=== PATIENT | female | born 1985 | race Two or more races ===

== ENCOUNTER 2020-04-30 05:55 | Day surgery (SDC) | payer OTHER | END 2020-04-30 10:25 | disposition home or self-care (01) | LOC: AMB-ENDOS 05:55 → ADM 15:00 | PROVIDERS: ATTEND Surgery | DX: D13.1 Benign neoplasm of stomach (principal) ==

== ENCOUNTER 2020-10-28 06:15 | Day surgery (SDC) | payer OTHER ==
[~2020-10-28 06:15] MED LIST: INVOKAMET 150-1 EACH PO; WELLBUTRIN SR150 MG PO; [UNRECOGNIZED DRUG - OTHER] PO
[2020-10-28] MEDS ORDERED: CIPRO500 MG PO (10:31)
[2020-10-28] MEDS ORDERED: POLY119PG PO (10:31)
[2020-10-28] MEDS ORDERED: ULTRACET PO (10:31)
[2020-10-28] MEDS ORDERED: SURFAK240 MG PO (10:31)
== END 2020-10-28 14:10 | disposition home or self-care (01) ==
LOC: CIR.AMB 06:15
PROVIDERS: ATTEND Surgery
DX: K80.10 Calculus of gallbladder with chronic cholecystitis without obstruction (principal); Z20.828 Contact with and (suspected) exposure to other viral communicable diseases; K42.9 Umbilical hernia without obstruction or gangrene; K43.9 Ventral hernia without obstruction or gangrene; K66.0 Peritoneal adhesions (postprocedural) (postinfection)

== ENCOUNTER 2024-08-03 12:18 | Emergency (ER) | payer OTHER ==
[~2024-08-03] VITALS: Ht 167.6 cm; Wt 104.3 kg
[~2024-08-03 12:18] MED LIST changes: +CIPRO500 MG PO; +POLY119PG PO; +SURFAK240 MG PO; +ULTRACET PO
[2024-08-03] MEDS ORDERED: GLIPIZIDE2.5 MG (12:42)
[2024-08-03] MEDS ORDERED: OZEMPIC0.25 MG/02 (12:42)
[2024-08-03] MEDS ORDERED: HYOSCYAMINE SULFATE 0.125 MG TAB.SUBL SL ONE (13:15)
[2024-08-03] MEDS ORDERED: FAMOTIDINE/PF 20 MG/2 ML VIAL IV PUSH ONE (13:15)
[2024-08-03] MEDS ORDERED: ONDANSETRON HCL 2 MG/ML VIAL IV ONE (13:15)
[2024-08-03 13:42] LABS: HEMATOCRIT 41.2 % (36.0-45.00); HEMOGLOBIN 14.1 g/dL (12.0-15.00); MEAN CELL VOLUME 84.4 fL (80.00-100.00); MEAN CORPUSCULAR HEMOGLOBIN 28.8 pg (27.00-32.0); MEAN CORPUSCULAR HGB CONC 34.1 g/dl (32.0-36.0); PLATELET COUNT 301 K/uL (150-450); RED BLOOD COUNT 4.88 M/uL (4.00-6.00); RED CELL DISTRIBUTION WIDTH 14.7 % (11.5-14.5)
[2024-08-03 14:03] LABS: ALBUMIN 3.7 gm/dL (3.4-5.0); BILIRUBIN TOTAL 0.25 mg/dL (0.3-1.2); CREATININE SERUM 0.72 mg/dL (0.55-1.02); GFR 90.65; GLOBULINA 4.2 G/DL (2.4-3.5); TOTAL PROTEIN 7.9 gm/dL (6.4-8.2)
[2024-08-03] MEDS ORDERED: METRONIDAZOLE500 MG PO (16:27)
[2024-08-03] MEDS ORDERED: ZOFRAN8 MG PO (16:27)
[2024-08-03] MEDS ORDERED: CIPRO500 MG PO (16:27)
[2024-08-03] MEDS ORDERED: PEPCID AC20 MG PO (16:27)
== END 2024-08-03 16:49 | disposition home or self-care (01) ==
LOC: ER 12:20
PROVIDERS: General Practice
DX: K52.9 Noninfective gastroenteritis and colitis, unspecified (principal); R10.9 Unspecified abdominal pain; Z20.822 Contact with and (suspected) exposure to COVID-19; E11.9 Type 2 diabetes mellitus without complications; Z88.0 Allergy status to penicillin

== ENCOUNTER 2025-03-05 20:38 | Emergency (ER) | payer OTHER ==
[~2025-03-05] VITALS: Ht 165.1 cm; Wt 115.7 kg
[~2025-03-05 20:38] MED LIST changes: +GLIPIZIDE2.5 MG; +METRONIDAZOLE500 MG PO; +OZEMPIC0.25 MG/02; +PEPCID AC20 MG PO; +ZOFRAN8 MG PO
[2025-03-05] MEDS ORDERED: BUPROPION XL300 MG PO (21:08)
[2025-03-05] MEDS ORDERED: BUPROPION XL150 MG PO (21:08)
[2025-03-05] MEDS ORDERED: FAMOTIDINE/PF 20 MG in 0.9 % SODIUM CHLORIDE 8 ML IV PUSH STA (21:59)
[2025-03-05] MEDS ORDERED: ONDANSETRON HCL 2 MG/ML VIAL IV ONE (22:00)
[2025-03-05] MEDS ORDERED: 0.9 % SODIUM CHLORIDE 1,000 ML IV SCH (22:00)
[2025-03-05] MEDS ORDERED: DIPHENOXYLATE HCL/ATROPINE 1 UDTAB TABLET PO ONE (22:00)
[2025-03-05] MEDS ORDERED: ONDANSETRON HCL 2 MG/ML VIAL ONE (22:04)
[2025-03-05] MEDS ORDERED: FAMOTIDINE/PF 20 MG/2 ML VIAL ONE (22:04)
[2025-03-05 23:17] LABS: HEMATOCRIT 40.7 % (36.0-45.00); HEMOGLOBIN 13.7 g/dL (12.0-15.00); MEAN CELL VOLUME 85.3 fL (80.00-100.00); MEAN CORPUSCULAR HEMOGLOBIN 28.8 pg (27.00-32.0); MEAN CORPUSCULAR HGB CONC 33.7 g/dl (32.0-36.0); PLATELET COUNT 362 K/uL (150-450); RED BLOOD COUNT 4.77 M/uL (4.00-6.00); RED CELL DISTRIBUTION WIDTH 15.2 % (11.5-14.5)
[2025-03-05 23:41] LABS: ALBUMIN 3.7 gm/dL (3.4-5.0); BILIRUBIN TOTAL 0.28 mg/dL (0.3-1.2); CALCIUM 8.8 mg/dL (8.5-10.1); CREATININE SERUM 0.72 mg/dL (0.55-1.02); GFR 90.18; GLOBULINA 3.7 G/DL (2.4-3.5); POTASSIUM 4.13 mEq/L (3.5-5.1); TOTAL PROTEIN 7.4 gm/dL (6.4-8.2)
[2025-03-05] MEDS ORDERED: PEPCID AC20 MG PO (23:54)
[2025-03-05] MEDS ORDERED: ONDANSETRON ODT8 MG PO (23:54)
[2025-03-06] LABS: COVID-19 AG NEGATIVE (NEGATIVE)
[2025-03-06 00:01] LABS: INFLUENZA A AG NEGATIVE (NEGATIVE)
== END 2025-03-06 00:10 | disposition home or self-care (01) ==
LOC: ER 20:39
PROVIDERS: General Practice
DX: R11.2 Nausea with vomiting, unspecified (principal); R19.7 Diarrhea, unspecified; B34.9 Viral infection, unspecified; Z88.0 Allergy status to penicillin; Z20.822 Contact with and (suspected) exposure to COVID-19

== ENCOUNTER 2025-05-21 08:00 | Inpatient (IN) | payer OTHER ==
[~2025-05-21] VITALS: Ht 165.1 cm; Wt 117.0 kg
[~2025-05-21 08:00] MED LIST changes: +BUPROPION XL150 MG PO; +BUPROPION XL300 MG PO; +ONDANSETRON ODT8 MG PO
[2025-05-21 10:05] VITALS: BP 136/80
[2025-05-21 10:25] LABS: BASO % 0.8 % (0.1-1.2); EOS # 0.15 (0.04-0.54); EOS % 2.4 % (0.7-7.0); LYMPH # 1.89 (1.18-3.74); LYMPH % 30.1 % (19.3-53.1); MEAN PLATELET VOLUME 10.20 fl (9.4-12.4); MONO # 0.66 (0.24-0.82); MONO % 10.5 % (4.7-12.5); NEUT # 3.50 (1.56-6.13); NEUT % 55.9 % (34.0-71.1); RED CELL DISTRIBUTION WIDTH 14.2 % (11.6-14.4)
[2025-05-21 10:33] LABS: URINE APPEARANCE Clear; URINE BILIRRUBIN Negative (NEGATIVE); URINE BLOOD Negative; URINE COLOR Yellow; URINE GLUCOSE Negative (NEGATIVE); URINE KETONE Negative (NEGATIVE); URINE LEUKOCYTE Negative; URINE NITRATE Negative; URINE PROTEIN Negative (NEGATIVE); URINE UROBILINOGEN 0.2 E.U./dl
[2025-05-21 10:34] LABS: URINE BACTERIA 25.1 uL (0.0-1933); URINE EPITHELIAL CELLS 2.2 uL (0.0-38.8); URINE RBC 4.5 uL (0.0-20.8)
[2025-05-21 10:37] LABS: URINE CAST 0.00 uL (0.0-1.40); URINE WBC 0.4 uL (0.0-23.2)
[2025-05-21 10:46] LABS: INR 1.0
[2025-05-21 10:54] LABS: RH POSITIVE
[2025-05-21 10:59] LABS: ALT/SGPT 25.0 U/L (12-78); AST/SGOT 10.0 U/L (15-37); BILIRUBIN TOTAL 0.18 mg/dL (0.3-1.2); BUN CREA RATIO 19.0 (7.0-25.0); CREATININE SERUM 0.58 mg/dL (0.55-1.02); GFR 115.73; GLOBULINA 3.6 G/DL (2.4-3.5); GLUCOSE FASTING 102.0 mg/dL (65-100); OSMOLALITY SERUM 281.0 MOSM/KG (275-295)
[2025-05-26] MEDS ORDERED: SURGIFLO APPLICATOR 1 EACH APPL TOP ONE (12:24)
[2025-05-26] MEDS ORDERED: POVIDONE-IODINE 118 ML BOTT TOP ONE (12:24)
[2025-05-26] MEDS ORDERED: CLINDAMYCIN PHOSPHATE 150 MG/ML (900mg) ONE (12:33)
[2025-05-26] MEDS ORDERED: GENTAMICIN SULFATE 40 MG/ML VIAL IV ONE (14:00)
[2025-05-26] MEDS ORDERED: METRONIDAZOLE/SODIUM CHLORIDE 500 MG/100 ML PIGGYBACK IV ONE (14:00)
[2025-05-26] MEDS ORDERED: SUGAMMADEX SODIUM 200 MG/2 ML VIAL IV ONE (15:15)
[2025-05-26] MEDS ORDERED: MORPHINE SULFATE 4 MG/ML VIAL IV ONE ×2 (16:55→18:00)
[2025-05-26] MEDS ORDERED: GABAPENTIN 300 MG CAPSULE PO SCH (17:28)
[2025-05-26] MEDS ORDERED: RINGERS SOLUTION,LACTATED 1,000 ML IV SCH (17:30)
[2025-05-26] MEDS ORDERED: ONDANSETRON HCL 2 MG/ML VIAL IV PRN (17:30)
[2025-05-26] MEDS ORDERED: KETOROLAC TROMETHAMINE 30 MG VIAL ONE (17:44)
[2025-05-26] MEDS ORDERED: ACETAMINOPHEN 500 MG GEL..CAP PO SCH (18:00)
[2025-05-26] MEDS ORDERED: KETOROLAC TROMETHAMINE 30 MG VIAL IV SCH (18:00)
[2025-05-26 20:12] VITALS: BP 112/60
[2025-05-27 01:18] VITALS: BP 133/73
[2025-05-27 07:07] LABS: BASO % 0.4 % (0.1-1.2); EOS # 0.09 (0.04-0.54); EOS % 1.2 % (0.7-7.0); LYMPH # 1.03 (1.18-3.74); LYMPH % 13.3 % (19.3-53.1); MEAN PLATELET VOLUME 10.40 fl (9.4-12.4); MONO # 0.58 (0.24-0.82); MONO % 7.5 % (4.7-12.5); NEUT # 5.99 (1.56-6.13); NEUT % 77.3 % (34.0-71.1); RED CELL DISTRIBUTION WIDTH 14.1 % (11.6-14.4)
[2025-05-27 09:37] VITALS: BP 100/65
== END 2025-05-27 10:19 | disposition home or self-care (01) | DRG 743 ==
LOC: SURH 05-26 07:00 → OB/GYN 05-26 13:38 → O/R 05-26 13:38 → OB/GYN 05-26 16:51 → SURH 05-29 08:00
PROVIDERS: ADMIT Student in an Organized Health Care Education/Training Program; ATTEND Student in an Organized Health Care Education/Training Program
PROC: 0UB64ZZ Excision of Left Fallopian Tube, Percutaneous Endoscopic Approach (ICD-10-PCS; 2025-05-26)
PROC: 0WBH4ZZ Excision of Retroperitoneum, Percutaneous Endoscopic Approach (ICD-10-PCS; 2025-05-26)
PROC: 8E0W4CZ Robotic Assisted Procedure of Trunk Region, Percutaneous Endoscopic Approach (ICD-10-PCS; 2025-05-26)
PROC: 0TJB8ZZ Inspection of Bladder, Via Natural or Artificial Opening Endoscopic (ICD-10-PCS; 2025-05-26)
PROC: 0UT94ZZ Resection of Uterus, Percutaneous Endoscopic Approach (ICD-10-PCS; principal; 2025-05-26 07:00)
DX: D25.1 Intramural leiomyoma of uterus (principal); N72 Inflammatory disease of cervix uteri; N94.6 Dysmenorrhea, unspecified; N93.9 Abnormal uterine and vaginal bleeding, unspecified; N80.03 Adenomyosis of the uterus; R10.2 Pelvic and perineal pain; N80.9 Endometriosis, unspecified
CPT/HCPCS: 58571; 58661; 58662; 52000; S2900

== ENCOUNTER 2025-05-29 12:04 | Emergency (ER) | payer OTHER ==
[~2025-05-29] VITALS: Ht 165.1 cm; Wt 116.1 kg
[2025-05-29] MEDS ORDERED: FAMOtidine 10 MG/ML (4ML VIAL) IV ONE (13:00)
[2025-05-29] MEDS ORDERED: 0.9 % SODIUM CHLORIDE 1,000 ML IV ONE (13:00)
[2025-05-29] MEDS ORDERED: CIPROFLOXACIN IN 5 % DEXTROSE 400 MG/200 ML PIGGYBAG IV ONE ×2 (13:00→13:34)
[2025-05-29] MEDS ORDERED: FAMOTIDINE/PF 20 MG/2 ML VIAL ONE (13:34)
[2025-05-29 13:41] LABS: BASO % 0.5 % (0.1-1.2); EOS # 0.40 (0.04-0.54); EOS % 6.8 % (0.7-7.0); LYMPH # 0.54 (1.18-3.74); LYMPH % 9.2 % (19.3-53.1); MEAN PLATELET VOLUME 9.80 fl (9.4-12.4); MONO # 0.85 (0.24-0.82); MONO % 14.4 % (4.7-12.5); NEUT # 4.04 (1.56-6.13); NEUT % 68.6 % (34.0-71.1); RED CELL DISTRIBUTION WIDTH 14.6 % (11.6-14.4)
[2025-05-29 13:45] LABS: COVID-19 AG POSITIVE (NEGATIVE)
[2025-05-29 13:59] LABS: ERYTHROCYTE SEDIMENTATION RATE 92 mm/hr (0-20)
[2025-05-29 14:34] LABS: ALT/SGPT 52.0 U/L (12-78); AST/SGOT 23.0 U/L (15-37); BILIRUBIN TOTAL 0.24 mg/dL (0.3-1.2); BUN CREA RATIO 9.0 (7.0-25.0); CREATININE SERUM 0.7 mg/dL (0.55-1.02); GFR 93.16; GLOBULINA 4.1 G/DL (2.4-3.5); GLUCOSE FASTING 97.0 mg/dL (65-100); OSMOLALITY SERUM 281.0 MOSM/KG (275-295)
[2025-05-29 14:35] LABS: URINE APPEARANCE Clear; URINE BILIRRUBIN Negative (NEGATIVE); URINE BLOOD Trace; URINE COLOR Yellow; URINE GLUCOSE Negative (NEGATIVE); URINE KETONE Negative (NEGATIVE); URINE LEUKOCYTE Small; URINE NITRATE Negative; URINE PROTEIN Negative (NEGATIVE); URINE UROBILINOGEN 0.2 E.U./dl
[2025-05-29 14:37] LABS: INR 1.1
[2025-05-29 14:39] LABS: URINE BACTERIA 1985.5 uL (0.0-1933); URINE EPITHELIAL CELLS 47.9 uL (0.0-38.8); URINE RBC 15.6 uL (0.0-20.8); URINE WBC 56.2 uL (0.0-23.2)
[2025-05-29 14:46] LABS: URINE CAST 0.00 uL (0.0-1.40)
[2025-05-29] MEDS ORDERED: LEVALBUTER0.63 MG/3 IH (15:40)
[2025-05-29] MEDS ORDERED: BENZONATATE200 M1 PO (15:40)
[2025-05-29] MEDS ORDERED: SINGULAIR10 MG PO (15:41)
[2025-05-29] MEDS ORDERED: MONTELUKAST SODIUM 10 MG TABLET PO ONE (15:45)
[2025-05-29] MEDS ORDERED: LEVALBUTEROL HCL 1.25 MG/3 ML SOLUTION IH ONE (15:45)
== END 2025-05-29 16:06 | disposition home or self-care (01) ==
LOC: ER 12:16
PROVIDERS: General Practice
DX: U07.1 COVID-19 (principal); R50.9 Fever, unspecified; E11.9 Type 2 diabetes mellitus without complications; Z88.0 Allergy status to penicillin; Z91.018 Allergy to other foods